=== PATIENT | female | born 1955 | race Caucasian/White ===

== ENCOUNTER 2018-02-12 09:28 | Emergency (ER) | payer OTHER ==
[2018-02-12] MEDS ORDERED: Ketorolac INJ* 30 MG/ML 1 ML VIAL IM ONE (11:20)
--- NOTE | 2018-02-12 11:25 | RAD ---
Indication: LEFT knee pain post fall one week ago. Comparison: May 30, 2016 Technique: LEFT knee: AP, tunnel, lateral, sunrise views. Report: Negative for fracture or joint effusion. Normal articular alignment. Mild osteophytosis and mild medial joint space narrowing. Small sessile morphology indolent appearing lesion at the medial proximal metaphysis of the tibia unchanged compared with the prior exam is consistent with a benign osteochondroma without concern. Unremarkable soft tissue contours. IMPRESSION: 1. Negative for fracture or joint effusion. 2. Kellgren and Shaan grade 2 osteoarthritis without significant change.
--- NOTE | 2018-02-12 11:32 | RAD ---
Indication: Low back pain. Fall one week ago. Comparison: March 11, 2017 CT. May 09, 2016 radiographs. Technique: AP, lateral, and oblique views lumbar sacral spine. Report: Postsurgical change of multilevel decompressive laminectomy. Mild S-shaped curve convex to the RIGHT at the thoracic lumbar junction and to the LEFT at the mid to distal lumbar sacral spine without change. No significant change in grade 1 L3-L4, L4-L5, and L5-S1 degenerative retrolisthesis. Negative for fracture or spondylolysis. Multilevel advanced degenerative spondylosis with asymmetric moderate L2-L3, moderate L3-L4, and severe L4-L5 and L5-S1 disc space narrowing with associated vertebral endplate osteophytosis and reactive endplate sclerosis. No significant change in facet joint osteoarthritis most marked at the L4-L5 and L5-S1 level. 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 Unremarkable sacroiliac joints and pubic symphysis. Unremarkable paraspinal soft tissue contours. IMPRESSION: 1. No fracture or new malalignment evident compared with the 2016 exam. 2. Interval worsening of multilevel advanced degenerative spondylosis and grossly unchanged advanced facet joint osteoarthritis.
[2018-02-12 11:36] VITALS: BP 125/85
--- NOTE | 2018-02-12 11:36 | ED ---
Back Pain - HPI Summary HPI Summary: 62 female presents with back pain and left knee pain for the past week. She states that she fell as her right knee gave out. She states she landed with left knee behind her. She has a bruise her left knee and her left hip. She is able to ambulate. States the knee has been popping. The knee is not giving out. States she had previous back surgery many years ago. She is to follow up with neurosurgery on Saturday. No numbness or tingling. No loss of bladder or saddle anesthesia. She denies any fevers. - History of Current Complaint Chief Complaint: UCLowerExtremity Stated Complaint: KNEE,BACK PAIN Time Seen by Provider: 02/12/18 11:03 Pain Intensity: 7 - Allergies/Home Medications Allergies/Adverse Reactions: Allergies Allergy/AdvReac Type Severity Reaction Status Date / Time citalopram [From Celexa] Allergy Unknown Verified 02/12/18 09:37 Reaction Details duloxetine [From Cymbalta] Allergy Unknown Verified 02/12/18 09:37 Reaction Details gabapentin Allergy Unknown Verified 02/12/18 09:37 Reaction Details Penicillins Allergy Hives Verified 02/12/18 09:37 pregabalin [From Lyrica] Allergy Unknown Verified 02/12/18 09:37 Reaction Details adhesive tape AdvReac Rash Verified 02/12/18 09:37 aspirin AdvReac Unknown Verified 02/12/18 09:37 Reaction Details ibuprofen AdvReac Unknown Verified 02/12/18 09:37 Reaction Details iodine AdvReac Rash Verified 02/12/18 09:37 latex AdvReac Rash Verified 02/12/18 09:37 levofloxacin [From Levaquin] AdvReac Muscle Ache Verified 10/10/17 09:09 povidone AdvReac Rash Verified 10/10/17 09:10 PMH/Surg Hx/FS Hx/Imm Hx Endocrine/Hematology History: Reports: Hx Anemia - GETS VITAMIN B12 MONTHLY INJECTIONS Denies: Hx Anticoagulant Therapy, Hx Diabetes, Hx Thyroid Disease Cardiovascular History: Denies: Hx Hypertension, Hx Pacemaker/ICD Respiratory History: Reports: Hx Asthma - HX OF, Hx Chronic Bronchitis, Hx Sleep Apnea - NO PROBLEMS SINCE THE WEIGHT LOSS Denies: Hx Chronic Obstructive Pulmonary Disease (COPD) GI History: Reports: Hx Gastroesophageal Reflux Disease - ON MEDICATION FOR, Hx Hiatal Hernia, Other GI Disorders - Bariatric Surgery 2008 Denies: Hx Ulcer History: Denies: Hx Dialysis, Hx Renal Disease Musculoskeletal History: Reports: Hx Arthritis - OSTEOARTHRITIS, SPINE, NECK ( CAN'T LAY FLAT WITHOUT PAIN, Hx Scoliosis - surgery Sensory History: Reports: Hx Contacts or Glasses - GLASSES Denies: Hx Hearing Aid Opthamlomology History: Reports: Hx Contacts or Glasses - GLASSES Neurological History: Reports: Hx Migraine - EXCEDRIN MIGRAINE, Hx Seizures - 3 in lifetime- LAST 5-6 YEARS AGO Denies: Hx Dementia Psychiatric History: Reports: Hx Anxiety, Hx Depression - ON DAILY MEDS, Hx Substance Abuse - cocaine Denies: Hx Panic Disorder - Cancer History Hx Chemotherapy: No Hx Radiation Therapy: No - Surgical History Surgery Procedure, Year, and Place: ganglion cystectomy left wrist X 4 SURGERY. CYST REMOVED FROM BOTH FEET,umbilical hernia. PLANTAR FASCITIS RIGHT foot surg. RIGHT ANKLE tarsal tunnel repair- RIGHT FOOT. rotator cuff repair x 2 right shoulder. x 3-[facility]. [facility]. (gastic bypass) 2008. uterine ablasion. [facility]- [facility]- 10/2014-06/10. NASAL SURGERY FOR DEVIATED [facility]PTUM[facility] [place] Hx Anesthesia Reactions: Yes - SOMETIMES HAS A HARD TIME WAKING UP Infectious Disease History: No Infectious Disease History: Reports: Hx Hepatitis, Hx of Known/Suspected MRSA Denies: Hx Clostridium Difficile, Hx Human Immunodeficiency Virus (HIV), Hx Shingles, Hx Tuberculosis, Hx Known/Suspected VRE, Hx Known/Suspected VRSA, History Other Infectious Disease, Traveled Outside the [place] in Last 30 Days - Family History Known Family History: Positive: Hypertension - Social History Alcohol Use: Daily Alcohol Amount: 1 glass of wine per day Substance Use Type: Reports: None Hx Tobacco Use: Yes Smoking Status (MU): Former Smoker Type: Cigarettes Amount Used/How Often: NOW 1 CIG/DAY, PAST YEARS, MANY YEARS 1PPD X 10-20 YEARS Length of Time of Smoking/Using Tobacco: 20+ years Have You Smoked in the Last Year: Yes Review of Systems Negative: Fever Negative: Chest Pain Negative: Shortness Of Breath Positive: Myalgia - left knee and back All Other Systems Reviewed And Are Negative: Yes Physical Exam Triage Information Reviewed: Yes Vital Signs On Initial Exam: Initial Vitals Temp Pulse Resp BP Pulse Ox 97.6 F 83 18 128/81 97 02/12/18 09:33 02/12/18 09:33 02/12/18 09:33 02/12/18 09:33 02/12/18 09:33 Vital Signs Reviewed: Yes Appearance: Positive: Well-Appearing Skin: Positive: Warm, Dry Head/Face: Positive: Normal Head/Face Inspection Eyes: Positive: Normal, Conjunctiva Clear ENT: Positive: Pharynx normal Respiratory/Lung Sounds: Positive: Clear to Auscultation, Breath Sounds Present Cardiovascular: Positive: Normal, RRR Musculoskeletal: Positive: Strength/ROM Intact - left knee with pain, Other - Tenderness lower back, and tenderness over the patella, good pulses, neg ballotment. No laxity to joint. Negative anterior drawer. sensation grossly intact Neurological: Positive: Normal, Reflexes Intact - patella Psychiatric: Positive: Normal Diagnostics - Vital Signs Vital Signs Temp Pulse Resp BP Pulse Ox 02/12/18 09:33 97.6 F 83 18 128/81 97 - Laboratory Lab Statement: Any lab studies that have been ordered have been reviewed, and results considered in the medical decision making process. - Radiology back Xray Interpretation: No Acute Changes Radiology Interpretation Completed By: Radiologist knee Xray Interpretation: No Acute Changes Radiology Interpretation Completed By: Radiologist Back Pain Course/Dx - Course Course Of Treatment: 62 female presents with back pain and left knee pain for the past week. She states that she fell as her right knee gave out. She states she landed with left knee behind her. She has a bruise her left knee and her left hip. She is able to ambulate. States the knee has been popping. The knee is not giving out. States she had previous back surgery many years ago. She is to follow up with neurosurgery on Saturday. No numbness or tingling. No loss of bladder or saddle anesthesia. She denies any fevers. On exam has tenderness lower back. Neurovascularly intact. Sensation grossly intact. Patellar reflex intact. Tenderness over her patella left knee. Negative ballotment and no laxity to the joint. Gave Toradol doing better. X- ray of knee and back no fracture. Will follow up with neurosurgery and ortho. Patient requesting Toradol for at home. Patient understands agrees with plan. - Diagnoses Differential Diagnosis/HQI/PQRI: Positive: Fracture Provider Diagnoses: Back pain, Left knee injury Discharge - Sign-Out/Discharge Documenting (check all that apply): Discharge/Admit/Transfer - Discharge Plan Condition: Good Disposition: HOME Prescriptions: Ketorolac TAB * [Toradol TAB *] 10 mg PO TID #21 tab Patient Education Materials: Knee Pain (ED), Back Pain (ED) Referrals: Armando Persaud MD [Primary Care Provider] - John Durbin MD [Medical Doctor] - Additional Instructions: take toradol three times a day Use Tylenol for pain every 6 hours ice/heat area, move as much as possible Follow up with ortho and neurosurgery Return to ED if develop any new or worsening symptoms - Billing Disposition and Condition Condition: GOOD Disposition: Home
== END 2018-02-12 11:51 | disposition home or self-care (01) ==
LOC: UCEAST 09:28
DX: S80.02XA Contusion of left knee, initial encounter (principal); S70.02XA Contusion of left hip, initial encounter; M25.562 Pain in left knee; M54.9 Dorsalgia, unspecified; Z88.8 Allergy status to other drugs, medicaments and biological substances; Z88.0 Allergy status to penicillin; Z91.09 Other allergy status, other than to drugs and biological substances; Z88.6 Allergy status to analgesic agent; Z98.890 Other specified postprocedural states; F17.210 Nicotine dependence, cigarettes, uncomplicated; W19.XXXA Unspecified fall, initial encounter; Y93.9 Activity, unspecified; Y92.9 Unspecified place or not applicable
CPT/HCPCS: 72110; 99212; G0463; J1885

== ENCOUNTER 2019-07-14 11:37 | Day surgery (SDC) | payer OTHER ==
--- NOTE | 2019-07-09 15:55 | HP ---
PREOPERATIVE HISTORY AND PHYSICAL: DATE OF ADMISSION/SURGERY: 07/14/19 - [facility] DATE OF OFFICE VISIT: 07/06/19 ATTENDING PHYSICIAN: Dr. Fabiana Saldaña.* (DICTATED BY CLINTON CASTRO) PROCEDURE: Right elbow ulnar nerve decompression and wrist carpal tunnel release. CHIEF COMPLAINT: Right hand pain and numbness. HISTORY OF PRESENT ILLNESS: Claudette is a 64-year-old female who had about 6- month history of cramping pain in her right hand as well as numbness and tingling. She states that it has gradually gotten worse, feels numb in the ring and small finger mostly, but she does get numbness occasionally in the radial 3 digits as well. No specific injury. She rates her pain as a 4/10. She states that sometimes the numbness radiates up her forearm. She denies any significant neck pain. She has failed conservative treatment and has elected to proceed with surgery. She is scheduled to undergo right elbow ulnar nerve decompression and wrist carpal tunnel release on 07/14/[address] Saldaña. PAST MEDICAL HISTORY: Asthma, anemia, depression, arthritis, hepatitis C, history of seizures, alcoholism, GERD. PAST SURGICAL HISTORY: , ganglion cyst excision on her wrist x3, D and C and ablation, colonoscopy, liver biopsy, back surgery x2 in 2015 and 2016 , bariatric surgery, laparotomy for perforated uterus during D and C. MEDICATIONS: 1. Amitriptyline 100 mg. 2. Buspirone 5 mg. 3. Calcium 600 mg per unit. 4. Sertraline. 5. Cyclobenzaprine. 6. Gabapentin 800 mg. 7. Lasix 20 mg. 8. Lidoderm 5%. 9. Meloxicam 7.5 mg. 10. Multivitamins. 11. Prempro 0.45/1.5 mg. 12. Prilocaine. 13. Prilosec OTC 20 mg. 14. Promethazine 6.25 mg/5 mL. 15. Senna-Lax 8.6 mg. 16. Singulair 5 mg. 17. Tramadol 50 mg. 18. Vitamin C 500 mg. 19. Zofran 4 mg. ALLERGIES: PENICILLIN, SULFA, HYDROCODONE, LATEX, LEVAQUIN (LEVA-ZUNILDA), IBUPROFEN, ANTI-INFLAMMATORIES, and DYES. FAMILY HISTORY: Hypertension, cancer, and arthritis. SOCIAL HISTORY: She lives alone. She is disabled. She is a former smoker. She occasionally consumes beer and denies recreational drug use. REVIEW OF SYSTEMS: A complete 14-point review of systems was obtained, other than HPI was positive for blurred and double vision, hearing changes, chronic neck and back pain, weight loss, seasonal allergies, hay fever, and anxiety. All other systems are negative and noncontributory including negative for any prior anesthesia problems. PHYSICAL EXAMINATION GENERAL: Well-developed, well-nourished 64-year-old female, in no acute distress. Alert and oriented x3. Appropriate mood and affect. HEENT: Head is normocephalic, atraumatic. NECK: Supple with no palpable lymph nodes. LUNGS: Clear to auscultation bilaterally. No wheezes, rales, or rhonchi. CARDIAC: Regular rate and rhythm. S1, S2. No murmurs, rubs, or gallops. MUSCULOSKELETAL: Right upper extremity: There is no soft tissue swelling or bruising. She has a positive Tinel's at the ulnar nerve at the elbow. She can make a fist and fully flex and extend her fingers. She has weakness with finger abduction. She has decreased sensation in the ulnar nerve distribution as well as the median nerve distribution. She can straighten her fingers. She has a positive Tinel's at the wrist over the carpal tunnel, positive carpal compression test. 2+ radial pulse. SKIN: Intact without rashes or lesions. IMPRESSION: 1. 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 2. Right carpal tunnel syndrome. PLAN: She is scheduled to undergo right elbow ulnar nerve decompression and wrist carpal tunnel release on 07/14/[address] Saldaña. She will follow up in the office in 10 to 14 days postoperatively. CLINTON CASTRO [id number]/[facility] #: [id number] FRANK
[~2019-07-14 11:37] MED LIST: Buffered Lidocaine 1% SYRIN* 1 ML/SYRINGE INTRADERM ONE; Lactated Ringers 1000 ML Bag* 1,000 ML IV SCH
[2019-07-14] MEDS ORDERED: Bupivacaine 0.5% SDV PF* 30ML VIAL ONE (11:59)
[2019-07-14] MEDS ORDERED: Clindamycin 900 MG/D5W BAG(*) 900 MG/50 ML BAG IVPB ONE (12:10)
[2019-07-14] MEDS ORDERED: Midazolam* 1 MG/ML 2 ML VIAL (2 MG) ONE ×2 (12:48→14:06)
[2019-07-14] MEDS ORDERED: Lidocaine 1% INJ* 10 MG/ML 30 ML SDV ONE (13:06)
[2019-07-14] MEDS ORDERED: KETAMINE HCL* 50 MG/ML 10 ML VIAL ONE (13:13)
[2019-07-14] MEDS ORDERED: Propofol* 10 MG/ML 20 ML BTL ONE ×2 (13:13→13:52)
[2019-07-14] MEDS ORDERED: Lidocaine 2% PF * 5 ML VIAL ONE (13:13)
[2019-07-14] MEDS ORDERED: Propofol* 500 MG/50 ML BTL ONE (13:14)
[2019-07-14] MEDS ORDERED: Naloxone* 0.4 MG/ML 1 ML VIAL IV PRN (13:21)
[2019-07-14] MEDS ORDERED: Acetaminophen TAB* 325 MG PO PRN (13:21)
[2019-07-14] MEDS ORDERED: oxyCODONE TAB* 5 MG TAB PO PRN (13:21)
[2019-07-14] MEDS ORDERED: fentaNYL* 50 MCG/ML 2 ML VIAL (100 MCG VIAL) ONE ×2 (14:05→14:49)
[2019-07-14] MEDS ORDERED: Levalbuterol 1.25MG/0.5ML NEB ONE (14:37)
[2019-07-14] MEDS: fentaNYL* 50 MCG/ML 2 ML VIAL (100 MCG VIAL) IV PRN ×4 (14:49→15:19)
[2019-07-14] MEDS ORDERED: oxyCODONE/Acetamin 5/325 MG* TAB ONE (15:23)
[2019-07-14 15:32] VITALS: BP 135/89
--- NOTE | 2019-07-14 20:15 | OP ---
DATE OF OPERATION: 07/14/19 - [facility] DATE OF : 57 SURGEON: Fabiana Saldaña MD PRESCRIPTION EYEGLASS MAKER: CLINTON Cobos ANESTHESIA: Local MAC. PRE-OP DIAGNOSES: Right ulnar nerve compression at the elbow and right carpal tunnel syndrome. POST-OP DIAGNOSES: Right ulnar nerve compression at the elbow and right carpal tunnel syndrome. OPERATIVE PROCEDURE: Right carpal tunnel release and ulnar nerve decompression at the right elbow. ESTIMATED BLOOD LOSS: Zero. TOURNIQUET TIME: About 30 minutes. INDICATIONS FOR PROCEDURE: Claudette is a 64-year-old woman who has numbness and tingling in the right hand and exam findings consistent with ulnar nerve compression at the elbow and carpal tunnel syndrome. She presents for right carpal tunnel release and ulnar nerve decompression at the right elbow. DESCRIPTION OF PROCEDURE: The patient was brought to the operating room, was given a sedation anesthetic and a local infiltration of 10 cc of 1% plain lidocaine in the palm of the right hand and 20 cc of 0.5% Marcaine plain at the medial aspect of the right elbow. The skin of her right upper extremity was prepped and draped in the usual sterile fashion. The upper extremity was exsanguinated and the tourniquet elevated to 250 mmHg. A longitudinal incision was made in the palm in line with the ring finger. We dissected through the subcutaneous tissue down to the transverse carpal ligament. The ligament was divided sharply with the knife and then more proximally with the scissors. The nerve was dissected free from the surrounding tissue and there was an area of moderate compression at the mid portion of the ligament. The wound was irrigated and the skin edges reapproximated with 4- 0 nylon suture. Next, a curvilinear incision was then made centered between the medial epicondyle and the tip of the olecranon process. We dissected through the subcutaneous tissue down to the ulnar nerve, proximal to the elbow. The nerve was carefully dissected out proximally and distally through the cubital tunnel and into the flexor carpi ulnaris muscle. The fascia of the FCU muscle was completely divided, releasing the nerve and the nerve was also decompressed several centimeters up into the upper arm. The medial intermuscular septum was then divided. The wound was copiously irrigated with saline. The subcutaneous tissue was closed with 2-0 Vicryl suture and the skin with skin duane. The wounds were dressed with Xeroform, 4x4, Webril, and an Luis wrap. The patient tolerated the procedure well and was brought to the recovery room in good condition. [id number]/[facility] #: [id number] FRANK
== END 2019-07-14 15:49 | disposition home or self-care (01) ==
LOC: OREAST 11:37
PROVIDERS: ATTEND Orthopaedic Surgery
PROC: 01N50ZZ Release Median Nerve, Open Approach (ICD-10-PCS; principal; 2019-07-14 13:15)
PROC: 01N40ZZ Release Ulnar Nerve, Open Approach (ICD-10-PCS; 2019-07-14 13:15)
DX: G56.21 Lesion of ulnar nerve, right upper limb (principal); G56.01 Carpal tunnel syndrome, right upper limb; J45.909 Unspecified asthma, uncomplicated; F32.9 Major depressive disorder, single episode, unspecified; K21.9 Gastro-esophageal reflux disease without esophagitis; Z87.891 Personal history of nicotine dependence; Z79.1 Long term (current) use of non-steroidal anti-inflammatories (NSAID); Z79.891 Long term (current) use of opiate analgesic; Z79.51 Long term (current) use of inhaled steroids; Z88.5 Allergy status to narcotic agent; Z88.0 Allergy status to penicillin; Z88.2 Allergy status to sulfonamides; Z88.8 Allergy status to other drugs, medicaments and biological substances; Z98.84 Bariatric surgery status
CPT/HCPCS: A9270-GY; J2250; J2704; J3010; J3490